=== PATIENT | female | born 1955 | race Caucasian/White ===

== ENCOUNTER 2017-01-05 13:55 | Emergency (ER) | payer MEDICARE ==
[~2017-01-05] VITALS: Ht 167.6 cm; Wt 59.0 kg
--- NOTE | 2017-01-05 16:45 | NUR ---
Pt evaluated by MD for back pain. Ambulates in a hallway with stady gait. vss, nad at this time noted, cont with MD orders.
[2017-01-05] MEDS ORDERED: ADVIL PO (17:58)
--- NOTE | 2017-01-05 18:30 | NUR ---
Patient discharged home in stable conditon. Written and verbal after care instructions given. Patient verbalizes understanding of instructions.
[2017-01-05 18:31] VITALS: BP 138/81
== END 2017-01-05 18:32 | disposition home or self-care (01) ==
LOC: ER 13:57
DX: M51.26 Other intervertebral disc displacement, lumbar region (principal); F17.200 Nicotine dependence, unspecified, uncomplicated
CPT/HCPCS: 72131; 99284; A4663